=== PATIENT | female | born 1990 | race Caucasian/White ===

== ENCOUNTER 2022-04-28 21:11 | Emergency (ER) | payer MEDICAID, SELFPAY ==
--- NOTE | ~2022-04-28 | XR_ITS ---
EXAMINATION: XR chest 2V Exam Date/Time: 04/28/2022 21:30 CDT HISTORY: MIDSTERNAL TO LT SIDED cp/TIGHTNESS X TONIGHT Comparison: None available. RESULT: Lines, tubes, and devices: None. Lungs and pleura: Clear. Cardiomediastinal silhouette: Normal cardiomediastinal silhouette. Other: No acute osseous or upper abdominal finding. IMPRESSION: No acute cardiopulmonary process. Reviewed, dictated and finalized at [facility].
--- NOTE | ~2022-04-28 | CT_ITS ---
EXAMINATION: CTA chest PE protocol DATE: 04/29/2022 00:51 INDICATION: Shortness of breath. Assess chest pain. Elevated d-dimer. TECHNIQUE: Computed tomography angiography (CTA) of the chest was performed with 100 mL Omnipaque-350 intravenous contrast timed to evaluate the pulmonary arteries. Coronal maximum intensity projection 3D-reconstructions were created by the technologist. Automated exposure control and iterative reconst ruction technique were employed. Exam dose: 873.88 mGy-cm total exam DLP. COMPARISON: 04/28/2022 PA and lateral chest FINDINGS: There is moderate contrast opacification of the pulmonary arteries and no evidence of pulmo nary embolism. No thoracic aortic aneurysm or dissection. No hilar or mediastinal mass lesion or lymphadenopathy. No rmal heart size. Normal morphology of the adrenal glands. The lungs are clear of infiltrate or consolidation. No pulmonary mass lesion. Included skeletal structures are unremarkable. IMPRESSION: Negative examination; no evidence of pulmonary embolism Reviewed, dictated and finalized at [facility]. Reviewed, dictated and finalized at location [facility].
--- NOTE | 2022-04-28 21:13 | ECG_ITS ---
Measurements Intervals [place] Rate: 103 P: 44 NV: 140 QRS: 26 QRSD: 79 T: 29 QT: 311 QTc: 408 Interpretive Statements SINUS TACHYCARDIA BASELINE WANDER- I, II, III, V1-V2, V5-V6 BORDERLINE ECG Electronically Signed On 04-29-2022 6:20:14 CDT by Phillip Davis D.O.
[2022-04-28 21:18] VITALS: BP 156/111; PULSE 104; RESP 24; TEMP 36.6; O2SAT 99
[2022-04-28 21:29] VITALS: PULSE 107
[2022-04-28 21:35] LABS: Basophils Percent Auto 0.4 % (0.2-1.2); Eosinophils Absolute Auto 0.2 K/mm3 (0-0.3); Eosinophils Percent Auto 2.4 % (0-4.4); Hematocrit 33.2 % (37.0-47.0); Hemoglobin 10.3 g/dL (12.0-15.0); Immature Granulocyte Absolute 0.05 K/mm3 (0.00-0.031); Immature Granulocyte Percent A 0.5 % (0-0.5); Lymphocytes Absolute Auto 2.47 K/mm3 (0.9-3.2); Lymphocytes Percent Auto 25.7 % (18.3-44.2); Mean Corpuscular Hemoglobin 25.6 pg (26-34); Mean Corpuscular Volume 82.4 fl (80-100); Mean Platelet Volume 11.2 fl (7.4-10.4); Monocytes Absolute Auto 0.5 K/mm3 (0.1-0.6); Monocytes Percent Auto 5.4 % (2.6-8.5); Neutrophils Absolute Auto 6.3 K/mm3 (1.3-6.7); Neutrophils Percent Auto 65.6 % (45.5-73.1); Platelet Count Result 342 k/mm3 (150-375); Red Blood Count 4.03 M/mm3 (4.2-5.4); Red Cell Distribution Width 15.5 % (11.5-14.5); White Blood Count 9.6 K/mm3 (4.5-10.0)
--- NOTE | 2022-04-28 21:40 | ED.CHESTPAIN ---
HPI - Chest Pain General Chief Complaint: Chest Pain Stated Complaint: chest pain Time Seen by Provider: 04/28/22 21:18 History of Present Illness HPI narrative: 31-year-old female presenting to the emergency department for evaluation of left-sided chest pain that started just prior to arrival. Patient describes a left-sided chest pain that worsens intermittently. Patient states she was at rest when the pain started. Patient does report a prior history of PCOS but denies any previous history of CVA, IN, PE or DVT. Patient denies any worsening of the pain with movement or deep breathing. Patient reports he did have a long car ride in a few days ago and she drove back from [place]. Related Data Home Medications Medication Instructions Recorded Confirmed No Home Medications 04/28/22 04/28/22 Allergies Allergy/AdvReac Type Severity Reaction Status Date / Time No Known Allergies Allergy Verified 04/28/22 21:21 Review of Systems Review of Systems: CONSTITUTIONAL: Denies fever, chills, or sweats. EYES: Denies visual changes, redness, or discharge. ENT: Denies rhinorrhea, congestion, sore throat, or otalgia. CARDIOVASCULAR: See HPI RESPIRATORY: Denies cough or dyspnea. GASTROINTESTINAL: Denies abdominal pain, nausea, vomiting, or diarrhea. GENITOURINARY: Denies dysuria or hematuria. SKIN: Denies rash or itching. MUSCULOSKELETAL: Denies back pain, joint pain, or myalgia. NEUROLOGIC: Denies headache, numbness, or weakness. Exam Narrative: APPEARANCE: Well appearing, no pain, no distress, well-nourished. HEAD: normocephalic, atraumatic. EYES: PERRLA/EOMI, conjunctivae clear. NOSE: Normal no drainage NECK: Supple. No adenopathy, no masses. RESPIRATORY: Airway patent, respirations nonlabored. Clear to auscultation bilaterally, no rales, rhonchi, wheezing. CARDIOVASCULAR: Regular rate and rhythm without murmurs rubs or gallops. ABDOMINAL: Soft, nontender, nondistended, normal bowel sounds MUSCULOSKELETAL: Moves all extremities. Strength/ROM intact, No edema, No calf tenderness. NEURO: Alert. Cranial nerves II through XII intact. Grossly intact SKIN: Warm, dry. Normal Color Course Course Emergency Course: Patient's EKG showed no evidence of acute STEMI. Patient was mildly tachycardic. Patient serial troponins were negative. Patient's D-dimer was elevated. CTA showed no evidence of pulmonary embolism. On reevaluation patient states that she does feel improved. Patient was updated on the work-up and importance of close follow-up with her primary care physician. All question concerns were addressed. Patient was well-appearing at time of discharge Vital Signs Vital signs: Vital Signs Temperature 97.9 F 04/28/22 21:18 Pulse Rate 104 H 04/28/22 21:18 Respiratory Rate 24 H 04/28/22 21:18 Blood Pressure 156/111 H 04/28/22 21:18 Pulse Oximetry 99 04/28/22 21:18 Oxygen Delivery Room Air 04/28/22 21:18 Temperature 97.9 F 04/28/22 21:18 Pulse Rate 104 H 04/29/22 01:01 Respiratory Rate 32 H 04/29/22 01:01 Blood Pressure 125/71 04/29/22 01:01 Pulse Oximetry 99 04/28/22 21:18 Oxygen Delivery Room Air 04/28/22 21:18 MDM - Chest Pain Lab Data Attestation: I reviewed the patient's lab results. Result diagrams: 04/28/22 21:29 04/28/22 21:29 Labs: Lab Results 04/28/22 04/28/22 04/28/22 Range/Units 21:29 21:29 21:29 WBC 9.6 (4.5-10.0) K/mm3 RBC 4.03 L (4.2-5.4) M/mm3 Hgb 10.3 L (12.0-15.0) g/dL Hct 33.2 L (37.0-47.0) % MCV 82.4 (80-100) fl MCH 25.6 L (26-34) pg MCHC 31.0 L (32-36) g/dl RDW 15.5 H (11.5-14.5) % Plt Count 342 (150-375) k/mm3 MPV 11.2 H (7.4-10.4) fl Immature Gran % (Auto) 0.5 (0-0.5) % Neut % (Auto) 65.6 (45.5-73.1) % Lymph % (Auto) 25.7 (18.3-44.2) % [place] % (Auto) 5.4 (2.6-8.5) % Eos % (Auto) 2.4 (0-4.4) % Baso % (Auto) 0.4 (0.2-1.2) % Lymph # (Au
[2022-04-28 21:45] LABS: Alanine Aminotransferase 30 U/L (6-35); Albumin Level 4.2 g/dL (3.5-5.1); Alkaline Phosphatase 79 U/L (38-126); Anion Gap 7 mmol/L (8-16); Aspartate Amino Transferase 20 U/L (14-36); Bilirubin,Total 0.2 mg/dL (0.2-1.3); Blood Urea Nitrogen 16 mg/dL (7-17); Calcium 8.7 mg/dL (8.4-10.2); Carbon Dioxide 27 mmol/L (22-30); Chloride 107 mmol/L (98-107); Estimated CRCL calculation 92 ml/min; Estimated Glomerular Filt Rate > 60; Glucose 125 mg/dL (65-110); Lipase 71 U/L (23-300); Potassium 3.9 mmol/L (3.4-5.0); Sodium 141 mmol/L (137-145)
[2022-04-28 21:46] LABS: INR 1.1; Partial Thromboplastin Time 30.2 SECONDS (22.3-36.8)
[2022-04-28] MEDS: ASPIRIN 81 MG CHEWABLE TABLET 324 MG PO (21:52)
[2022-04-28 21:56] LABS: Troponin I < 0.012 ng/mL (0.000-0.034)
[2022-04-28 23:26] LABS: D Dimer 0.57 ug/mL (<0.48)
[2022-04-29 00:35] VITALS: BP 125/77; PULSE 104; RESP 18
[2022-04-29 00:49] VITALS: PULSE 104; RESP 20
[2022-04-29 00:50] VITALS: BP 134/80; PULSE 106; RESP 24
[2022-04-29 00:59] LABS: Troponin I < 0.012 ng/mL (0.000-0.034)
[2022-04-29 01:00] VITALS: PULSE 109; RESP 31
[2022-04-29 01:01] VITALS: BP 125/71; PULSE 104; RESP 32
== END 2022-04-29 01:26 | disposition home or self-care (01) ==
PROVIDERS: Emergency Medicine; Emergency Provider Emergency Medicine
DX: E28.2 Polycystic ovarian syndrome (principal); R07.89 Other chest pain; R00.0 Tachycardia, unspecified
CPT/HCPCS: 36415; 71046; 71275; 80053; 81025; 83690; 84484; 85025; 85380; 85610; 85730; 93005; 99284; A9270; Q9967